=== PATIENT | female | born 1955 | race Caucasian/White ===

== ENCOUNTER → 2017-05-12 | Outpatient (CLI) | payer OTHER, BC ==
--- NOTE | 2017-05-12 09:00 | REP ---
BILATERAL SCREENING DIGITAL MAMMOGRAM: Comparisons are 02/03/2012 and 04/21/2014. There is extremely dense breast parenchyma bilaterally, unchanged, that could obscure a lesion. There has been no interval development of masses, areas of structural distortion or clusters of microcalcifications typical of malignancy. Impression: There is no evidence of malignancy. BI-RADS category 1 negative mammogram. The patient should have a repeat mammogram in 1 year. This mammogram was interpreted with the aid of an FDA-approved computer-aided detection system. A. Negative x-ray reports should not delay biopsy if a dominant or clinically suspicious mass is present. B. Four to eight percent of cancers are not identified by x-ray. C. Adenosis and dense breasts may obscure an underlying neoplasm. The patient letter being requested is M1 dense breasts. Unreviewed
== END ==
LOC: M RAD 08:14
PROVIDERS: ATTEND Internal Medicine
DX: Z12.31 Encounter for screening mammogram for malignant neoplasm of breast (principal)

== ENCOUNTER → 2018-05-14 | Outpatient (CLI) | payer OTHER, BC | LOC: M EKG 10:23 | DX: Z01.810 Encounter for preprocedural cardiovascular examination (principal); G56.01 Carpal tunnel syndrome, right upper limb | CPT/HCPCS: 93005 ==

== ENCOUNTER → 2018-09-16 | Outpatient (CLI) | payer OTHER, BC ==
--- NOTE | 2018-09-16 15:30 | REPMRS ---
Patient History The patient states she has not had a clinical breast exam in over a year. No known family history of cancer. Digital Mammo Screening Bilat: September 16, 2018 - Exam #: [id number] Bilateral CC and MLO view(s) were taken. Technologist: Angy Cerrato, Technologist Prior study comparison: May 12, 2017, bilateral digital mammo screening bilat performed at [facility]. May 09, 2016, bilateral digital mammo screening bilat performed at [facility]. May 08, 2015, bilateral digital mammo screening bilat performed at [facility]. FINDINGS: The breast tissue is extremely dense which could obscure a lesion on mammography. There is an extremely dense symmetrical pattern of residual fibroglandular tissue. There has been no change in the appearance of the mammogram from the previous studies. There is no interval development of dominant mass, archetectural distortion, or microcalcific cluster suggestive of malignancy. 3-D tomosynthesis shows no additional findings. Assessment: BI-RADS/ACR category 1 mammogram. Negative Mammogram. Recommendation Routine screening mammogram of both breasts in 1 year (for women over age 40). This patient's Lifetime Breast Cancer RIsk is estimated at 3.0 %. This mammogram was interpreted with the aid of an FDA-approved computer-aided dectection system. Electronically Signed By: Demarco Maya MD 09/16/18 [id number]
== END ==
LOC: M RAD 10:24
PROVIDERS: ATTEND Internal Medicine
DX: Z12.31 Encounter for screening mammogram for malignant neoplasm of breast (principal); N60.31 Fibrosclerosis of right breast; N60.32 Fibrosclerosis of left breast

== ENCOUNTER → 2018-11-24 | Outpatient (CLI) | payer OTHER, BC ==
[2018-11-24 12:31] LABS: BASO % 0.5 % (0.0-1.0); EOS # 0.3 10^3/uL (0.0-0.50); EOS % 3.5 % (0.0-3.0); HEMATOCRIT 39.5 % (36.0-47.0); HEMOGLOBIN 12.6 g/dl (12.0-15.5); LYMPH # 2.9 10^3/uL (1.5-4.5); LYMPH % 32.5 % (24.0-44.0); MEAN CORPUSCULAR HEMOGLOBIN 27.3 pg (27.0-33.0); MEAN CORPUSCULAR HGB CONC 31.9 g/dl (32.0-36.5); MEAN CORPUSCULAR VOLUME 85.5 fl (80.0-96.0); MONO # 0.9 10^3/uL (0.0-0.8); MONO % 10.1 % (0.0-5.0); NEUTROPHILS # 4.7 10^3/uL (1.8-7.7); NEUTROPHILS % 53.2 % (36.0-66.0); PLATELET COUNT, AUTOMATED 379 10^3/uL (150-450); RED BLOOD COUNT 4.62 10^6/uL (4.00-5.40); WHITE BLOOD COUNT 8.8 10^3/uL (4.0-10.0)
[2018-11-24 13:09] LABS: ALBUMIN 3.8 GM/DL (3.2-5.2); ALT/SGPT 27 U/L (12-78); BILIRUBIN,DIRECT < 0.1 MG/DL (0.0-0.2); BILIRUBIN,TOTAL 0.2 MG/DL (0.2-1.0); BLOOD UREA NITROGEN 10 MG/DL (7-18); C REACTIVE PROTEIN QUANTITATIV 0.32 MG/DL (0.00-0.30); CREATININE FOR GFR 0.83 MG/DL (0.55-1.30); GLOMERULAR FILTRATION RATE > 60.0 (>45); TOTAL PROTEIN 7.2 GM/DL (6.4-8.2)
== END ==
LOC: M WUC 10:25
PROVIDERS: ATTEND Internal Medicine Gastroenterology
DX: K51.90 Ulcerative colitis, unspecified, without complications (principal); M12.9 Arthropathy, unspecified

== ENCOUNTER 2019-05-27 11:00 | Emergency (ER) | payer OTHER, BC ==
[~2019-05-27] VITALS: Ht 175.3 cm; Wt 68.0 kg
[2019-05-27] MEDS ORDERED: ACETAMINOPHEN TAB 650MG DOSE (2X325MG) PO ONE (11:30)
[2019-05-27] MEDS ORDERED: SERT-141 PO (11:41)
[2019-05-27] MEDS ORDERED: RALO1TAB PO (11:41)
[2019-05-27] MEDS ORDERED: CALC600T57 PO (11:41)
[2019-05-27] MEDS ORDERED: HYDR-3363 PO (11:41)
[2019-05-27] MEDS ORDERED: MULTCAP PO (11:41)
[2019-05-27] MEDS ORDERED: SULF500T2 PO (11:41)
[2019-05-27] MEDS ORDERED: MIDO5TA PO (11:41)
[2019-05-27] MEDS ORDERED: ALEN70TA74 PO (11:41)
[2019-05-27] MEDS ORDERED: VITA500045 PO (11:41)
--- NOTE | 2019-05-27 11:45 | REP ---
CT brain: 05/28/2019. Indication: Headache. Comparison: New 04/16/2005. Technique: Unenhanced axial CT images of the brain were obtained from skull base to vertex. Findings: There is no acute intracranial hemorrhage, acute cortical infarction, mass effect or hydrocephalous. 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 Mild diffuse volume loss is present. The mastoid air cells are clear. An air-fluid level is noted within the left sphenoid sinus indicative of acute inflammation. Impression: No acute intracranial process. Left sphenoid sinus disease. Stable pineal region cyst. Electronically Signed by Osvaldo Jose DO 05/27/2019 11:37 A
[2019-05-27 12:25] VITALS: BP 128/75
== END 2019-05-27 12:31 | disposition home or self-care (01) ==
LOC: M ED 11:00
DX: G44.209 Tension-type headache, unspecified, not intractable (principal); E34.8 Other specified endocrine disorders; Z79.899 Other long term (current) drug therapy

== ENCOUNTER 2019-09-17 10:41 | Emergency (ER) | payer OTHER, BC ==
[~2019-09-17] VITALS: Ht 177.8 cm; Wt 70.4 kg
[~2019-09-17 10:41] MED LIST: ALEN70TA74 PO; CALC600T57 PO; HYDR-3363 PO; MIDO5TA PO; MULTCAP PO; RALO1TAB PO; SERT-141 PO; SULF500T2 PO; VITA500045 PO
[2019-09-17] MEDS ORDERED: CIPR500T3 (10:49)
[2019-09-17] MEDS ORDERED: CYCL5TAB (10:49)
[2019-09-17 12:06] LABS: BASO % 0.3 % (0.0-1.0); EOS # 0.2 10^3/uL (0.0-0.5); EOS % 2.3 % (0.0-3.0); HEMATOCRIT 38.2 % (36.0-47.0); HEMOGLOBIN 12.2 g/dl (12.0-15.5); LYMPH # 1.9 10^3/uL (1.5-5.0); LYMPH % 20.2 % (24.0-44.0); MEAN CORPUSCULAR HEMOGLOBIN 27.9 pg (27.0-33.0); MEAN CORPUSCULAR HGB CONC 31.9 g/dl (32.0-36.5); MEAN CORPUSCULAR VOLUME 87.2 fl (80.0-96.0); MONO # 0.8 10^3/uL (0.0-0.8); NEUTROPHILS # 6.2 10^3/uL (1.5-8.5); NEUTROPHILS % 67.9 % (36.0-66.0); PLATELET COUNT, AUTOMATED 300 10^3/uL (150-450); RED BLOOD COUNT 4.38 10^6/uL (4.00-5.40); WHITE BLOOD COUNT 9.2 10^3/uL (4.0-10.0)
[2019-09-17 12:37] LABS: ALBUMIN 3.8 GM/DL (3.2-5.2); ALT/SGPT 19 U/L (12-78); BILIRUBIN,DIRECT < 0.1 MG/DL (0.0-0.2); BILIRUBIN,TOTAL 0.3 MG/DL (0.2-1.0); BLOOD UREA NITROGEN 12 MG/DL (7-18); CALCIUM LEVEL 8.8 MG/DL (8.8-10.2); CARBON DIOXIDE LEVEL 29 MEQ/L (21-32); CHLORIDE LEVEL 104 MEQ/L (98-107); CREATININE FOR GFR 0.76 MG/DL (0.55-1.30); GLOMERULAR FILTRATION RATE > 60.0 (>45); GLUCOSE, FASTING 96 MG/DL (70-100); LIPASE 129 U/L (73-393); POTASSIUM SERUM 4.4 MEQ/L (3.5-5.1); SODIUM LEVEL 139 MEQ/L (136-145); TOTAL PROTEIN 7.4 GM/DL (6.4-8.2)
[2019-09-17] MEDS ORDERED: ISOVUE-370 76% 100ML VIAL (Q9967) As Ordered ONE (14:00)
--- NOTE | 2019-09-17 14:08 | REP ---
Nickel: Survey vein. Technique: Single supine view of the abdomen and pelvis. Findings: The bowel gas pattern is nonspecific. No organomegaly. No abnormal calcifications. Skeletal structures are intact. Impression: Nonspecific bowel gas pattern. Electronically Signed by Asaf Barry MD 09/17/2019 02:00 P
--- NOTE | 2019-09-17 14:24 | REP ---
Clinical: Suprapubic pain. Technique: Axial contrast enhanced images from the lung bases to the pubic symphysis with coronal and sagittal re-formations using 100 ml Isovue 370 intravenous contrast material. Findings: Lung bases are clear. Evidence for chronic pectus excavatum. Liver, spleen, pancreas, gallbladder, bilateral adrenal glands and kidneys are normal. The enteric system is without obstruction or acute inflammatory process. Normal terminal ileum and appendix are identified in the right lower quadrant. Pelvis demonstrates partially collapsed normal bladder and evidence for prior hysterectomy. No ascites. No free air. No adenopathy. Abdominal aorta without aneurysm or dissection. Musculoskeletal structures demonstrate age-related changes without focal abnormality. Impression: No acute abdominopelvic pathology appreciated. Electronically Signed by Asaf Barry MD 09/17/2019 02:15 P
[2019-09-17] MEDS ORDERED: LIDOCAINE 5% (LIDODERM) PATCH TD ONE (15:00)
[2019-09-17] MEDS ORDERED: LIDO5DIS41 TOP (15:06)
[2019-09-17 15:30] VITALS: BP 128/75
[2019-09-17] MEDS ORDERED: **NOTE PATIENT COMMENT** MISC XX SCH (21:00)
== END 2019-09-17 15:31 | disposition home or self-care (01) ==
LOC: M ED 10:41
DX: R10.9 Unspecified abdominal pain (principal); M54.9 Dorsalgia, unspecified; R73.03 Prediabetes; F41.9 Anxiety disorder, unspecified; K51.90 Ulcerative colitis, unspecified, without complications; Z79.899 Other long term (current) drug therapy
CPT/HCPCS: 74018; 74177; 80048; 80076; 81001; 83605; 83690; 85025; 99284; Q9967

== ENCOUNTER → 2020-03-06 | Outpatient (CLI) | payer OTHER, BC ==
[~2020-03-06] MED LIST changes: +CIPR500T3; +CYCL5TAB; +LIDO5DIS41 TOP
--- NOTE | 2020-04-01 10:34 | REPMRS ---
Patient History The patient states she has not had a clinical breast exam in over a year. Patient is postmenopausal. No known family history of cancer. No Hormone Replacement Therapy Digital Woman Screen Mammo: March 06, 2020 - Exam #: [id number] Bilateral MLO, CC, and LMO view(s) were taken. Technologist: Latisha Martinez, Technologist Prior study comparison: September 16, 2018, bilateral digital mammo screening bilat, performed at [facility]. May 12, 2017, bilateral digital mammo screening bilat, performed at [facility]. May 09, 2016, bilateral digital mammo screening bilat, performed at [facility]. FINDINGS: The breast tissue is heterogeneously dense. This may lower the sensitivity of mammography. There is a moderate amount of heterogeneously dense fibroglandular tissue which is fairly symmetric. There is no interval development of dominant mass, architectural distortion, or grouped microcalcification typical of malignancy. There has been no change in the appearance of the mammogram from the prior studies. 3-D tomosynthesis shows no additional findings. Report was delayed due to a protracted network disruption experienced by this facility. Assessment: BI-RADS/ACR category 1 mammogram. Negative Mammogram. Recommendation Routine screening mammogram of both breasts in 1 year (for women over age 40). This patient's Lifetime Breast Cancer RIsk is estimated at 2.8 %. This mammogram was interpreted with the aid of an FDA-approved computer-aided dectection system. Electronically Signed By: Demarco Maya MD 04/01/20 [id number]
--- NOTE | 2020-04-10 11:32 | DEXA ---
AP SPINE L2 - L4 1.023 -1.4 0.1 LT FEMUR TOTAL 0.612 -3.1 -2.0 LT NECK 0.652 -2.8 -1.4 RT FEMUR TOTAL 0.635 -3.0 -1.8 RT NECK 0.653 -2.8 -1.4 TOTAL BODY TOTAL OTHER COMMENTS: There is low bone density of the spine. There is Osteoporosis of the hips. The density of the spine has decreased 9.5% since the initial exam on 02/03/2005. The increased 9.8% since the most recent exam on 01/22/2018. The density of the left hip has decreased 0.3% since the initial exam on 04/18/2015. The density of the left hip has increased 5.7% since the most recent exam on 01/22/2018. The density of the right hip has increased 1.3% since the initial exam on 04/18/2015. The density of the right hip has increased 6.5% since the most recent exam on 01/22/2018. FOLLOW-UP: Recommendation for the next bone density exam: 2 years. EVERARDO
== END ==
LOC: M WHC 09:23
PROVIDERS: ATTEND Internal Medicine
DX: Z12.31 Encounter for screening mammogram for malignant neoplasm of breast (principal); M81.0 Age-related osteoporosis without current pathological fracture; Z78.0 Asymptomatic menopausal state

== ENCOUNTER → 2021-03-25 | Outpatient (CLI) | payer MEDICARE, OTHER, BC ==
[~2021-03-25] MED LIST changes: -ALEN70TA74 PO; +ALEN70TA82 PO
--- NOTE | 2021-03-25 11:43 | REPMRS ---
Patient History The patient states she has not had a clinical breast exam in over a year. No known family history of cancer. No Hormone Replacement Therapy Best views possible due to worsening kyphosis No breast complaints today Patient signed the MRS sheet Patient states she has gained about 20lbs since her last mammo 1st covid vaccine 10/17/20-right arm-Pfizer 2nd covid vaccine 11/07/20-left arm Priors on PACS Patient Identification Verified Digital Woman Screen Mammo: March 25, 2021 - Exam #: [id number] Bilateral CC and MLO view(s) were taken. Technologist: Serenity Lizarraga, Technologist Prior study comparison: March 06, 2020, bilateral digital woman screen mammo performed at [facility]. September 16, 2018, bilateral digital mammo screening bilat, performed at [facility]. FINDINGS: The breast tissue is heterogeneously dense. This may lower the sensitivity of mammography. Screening. Digital screening (2D) mammography was performed bilaterally in the CC and MLO projections. Additionally, breast tomosynthesis (3D mammography) was performed bilaterally in the CC and MLO projections. Todays exam was compared to the prior exam/exams. By history, the patient has no complaints of a palpable breast abnormality or other significant breast complaints. The breasts are unchanged in size and shape.Once again, dense heterogenous fibroglandular elements are seen bilaterally in a stable appearing pattern but to such a degree that the sensitivity of the mammogram in detecting cancer is decreased. There are no donald-soft tissue densities or spiculated masses. There is no internal architectural distortion. Once again, stable benign appearing calcifications are seen.There are no suspicious donald-calcific clusters. Skin thickening or nipple retraction is not present. IMPRESSION: BI-RADS Category 2- Benign Findings. There is no evidence of malignant alteration of the breasts. Followup examination recommended in one year. The Volpara volumetric breast density category is C, the breasts are heterogenously dense which may obscure small masses. This mammogram was read with the assistance of Jeffy Ansari [employer],an FDA approved computer aided detection system for mammography. The lifetime Tyrer-Cuzick score is 2.6 % Due to the density of the breasts or Tyrer Cuzick score of 20% or greater, MRI/whole breast screening ultrasound is warranted. Negative x-ray reports should not delay surgical consultation if a dominant or clinically suspicious mass is present. Not all breast cancers can be identified by mammography. Therefore, we recommend that you continue to perform regular breast self-examination and physical examination and then promptly contact your physician of any concerns or changes. Adenosis and dense breasts may obscure an underlying neoplasm. Assessment: BI-RADS/ACR category 2 mammogram. Benign Findings. Recommendation Routine screening mammogram of both breasts in 1 year. Electronically Signed By: Sebastian Camara DO 03/25/21 [id number]
== END ==
LOC: M WHC 10:22
PROVIDERS: ATTEND Internal Medicine
DX: Z12.31 Encounter for screening mammogram for malignant neoplasm of breast (principal)

== ENCOUNTER → 2022-03-14 | Outpatient (CLI) | payer BC, MEDICARE, OTHER | LOC: M WHC 09:47 | PROVIDERS: ATTEND Internal Medicine | DX: Z12.31 Encounter for screening mammogram for malignant neoplasm of breast (principal); M81.0 Age-related osteoporosis without current pathological fracture; M85.88 Other specified disorders of bone density and structure, other site ==

== ENCOUNTER → 2023-02-04 | Outpatient (CLI) | payer BC, MEDICARE, OTHER ==
[2023-02-04 13:27] LABS: BLOOD UREA NITROGEN 13 MG/DL (9-23); CARBON DIOXIDE LEVEL 28 MMOL/L (20-31); CHLORIDE LEVEL 104 MMOL/L (98-107); CREATININE FOR GFR 0.61 MG/DL (0.55-1.30); GLOMERULAR FILTRATION RATE > 60.0 (>45); GLUCOSE, FASTING 91 MG/DL (74-106); POTASSIUM SERUM 4.5 MMOL/L (3.5-5.1); SODIUM LEVEL 138 MMOL/L (136-145)
== END ==
LOC: M WUC 10:55
PROVIDERS: ATTEND Internal Medicine
DX: R73.01 Impaired fasting glucose (principal)

== ENCOUNTER → 2023-03-13 | Outpatient (CLI) | payer BC, MEDICARE, OTHER | LOC: M EKG 09:47 | PROVIDERS: ATTEND Plastic Surgery Surgery of the Hand | DX: Z01.818 Encounter for other preprocedural examination (principal); M25.531 Pain in right wrist; M18.11 Unilateral primary osteoarthritis of first carpometacarpal joint, right hand ==

== ENCOUNTER → 2024-01-27 | Outpatient (REF) | payer MEDICARE, OTHER | LOC: M LAB REF 12:37 | PROVIDERS: ATTEND Internal Medicine | DX: K51.90 Ulcerative colitis, unspecified, without complications (principal) ==

== ENCOUNTER → 2024-07-18 | Outpatient (REF) | payer BC, MEDICARE, OTHER ==
[~2024-07-18] MED LIST changes: -CYCL5TAB; +CYCL5TAB4
[2024-07-18 19:45] LABS: C REACTIVE PROTEIN QUANTITATIV 1.53 MG/DL (<1.0)
[2024-07-18 19:49] LABS: FERRITIN 37.5 NG/ML (7.3-270.7)
== END ==
LOC: M LAB REF 17:51
PROVIDERS: ATTEND Internal Medicine
DX: K51.913 Ulcerative colitis, unspecified with fistula (principal); E55.9 Vitamin D deficiency, unspecified

== ENCOUNTER → 2024-09-12 | Outpatient (CLI) | payer BC, MEDICARE, OTHER | LOC: M WHC 09:18 | PROVIDERS: ATTEND Internal Medicine | DX: Z12.31 Encounter for screening mammogram for malignant neoplasm of breast (principal); Z13.820 Encounter for screening for osteoporosis; R92.333 Mammographic heterogeneous density, bilateral breasts; M81.0 Age-related osteoporosis without current pathological fracture; M85.89 Other specified disorders of bone density and structure, multiple sites ==

== ENCOUNTER → 2024-10-01 | Outpatient (CLI) | payer BC, MEDICARE, OTHER | LOC: M RAD 14:18 | PROVIDERS: ATTEND Internal Medicine | DX: G20.A1 Parkinson's disease without dyskinesia, without mention of fluctuations (principal) ==

== ENCOUNTER → 2024-12-21 | Outpatient (REF) | payer BC, MEDICARE, OTHER ==
[~2024-12-21] MED LIST changes: +LIDO1ADH93 TOP; -LIDO5DIS41 TOP
== END ==
LOC: M LAB REF 14:22
PROVIDERS: ATTEND Physician Assistant Medical
DX: R11.2 Nausea with vomiting, unspecified (principal)

== ENCOUNTER → 2025-07-03 | Outpatient (CLI) | payer BC, MEDICARE, OTHER ==
[2025-07-03 11:59] LABS: BASO # 0.0 10^3/uL (0.0-0.2); BASO % 0.3 % (0.0-1.0); EOS # 0.1 10^3/uL (0.0-0.5); EOS % 1.4 % (0.0-3.0); LYMPH # 1.7 10^3/uL (1.5-5.0); LYMPH % 18.8 % (24.0-44.0); MONO # 1.0 10^3/uL (0.0-0.8); MONO % 10.6 % (2.0-8.0); NEUTROPHILS # 6.3 10^3/uL (1.5-8.5); NEUTROPHILS % 68.6 % (36.0-66.0); PLATELET COUNT, AUTOMATED 277 10^3/uL (150-450)
[2025-07-03 12:34] LABS: CALCIUM LEVEL 9.1 MG/DL (8.3-10.6); CARBON DIOXIDE LEVEL 26 MMOL/L (20-31); CHLORIDE LEVEL 101 MMOL/L (98-107); CREATININE FOR GFR 0.69 MG/DL (0.55-1.30); GLOMERULAR FILTRATION RATE > 90.0 (>45); POTASSIUM SERUM 3.9 MMOL/L (3.5-5.1); SODIUM LEVEL 139 MMOL/L (136-145)
== END ==
LOC: M WUC 10:42
DX: R53.81 Other malaise (principal)

== ENCOUNTER → 2025-07-24 | Outpatient (CLI) | payer BC, MEDICARE, OTHER | LOC: M WUC 11:38 | PROVIDERS: ATTEND Internal Medicine Gastroenterology | DX: K52.9 Noninfective gastroenteritis and colitis, unspecified (principal) ==